=== PATIENT | female | born 1945 | race Caucasian/White ===

== ENCOUNTER 2017-01-17 15:31 | Emergency (ER) | payer OTHER, MEDICARE ==
--- NOTE | 2017-01-17 15:34 | ED GENERAL ADULT ---
History of Present Illness General Chief Complaint: Nausea, Vomiting, Diarrhea Stated Complaint: BIBA FOR NVD Source: patient, family, old records, EMS Exam Limitations: no limitations Allergies Coded Allergies: acetaminophen (From PERCOCET) (STOMACH UPSET 01/17/17) oxycodone (From PERCOCET) (STOMACH UPSET 01/17/17) Reconcile Medications Acetaminophen With Codeine (Acetaminophen-Cod #3 Tablet) 300 MG-30 MG TABLET 1 TAB PO Q6P PRN PAIN (Reported) Amoxicillin 500 MG CAPSULE 2 CAP PO BID ANTIBIOTIC (Reported) Hydrochlorothiazide 25 MG TABLET 1 TAB PO DAILY HTN (Reported) Ondansetron (Zofran Odt) 4 MG TAB.RAPDIS 1 TAB SL TID PRN nausea Ranitidine (Ranitidine HCl) 150 MG TABLET 1 TAB PO BID GERD (Reported) Triage Nurses Notes Reviewed? yes HPI: Patient is a 71-year-old female presents complaining of chills and vomiting. Chills onset on Saturday. Saturday patient had 2-3 episodes of diarrhea, took Pepto -Bismol and Imodium, has not had a bowel movement since then. Patient has had vomiting 1 day, 5-6 episodes with increase in her chills and associated generalized weakness. Nausea is currently moderate to severe. Patient has an "upset stomach" sensation. Patient has been having dental pain for the past 2-3 days, has been taking amoxicillin and Tylenol with Codeine. Patient reports that she is taking both of these medications previously with no adverse reaction. Patient denies fevers, chest pain, dyspnea, urinary symptoms. (OLIVA PAINTER,RADHA) Vital Signs & Intake/Output Vital Signs & Intake/Output Vital Signs Date Time Temp Pulse Resp B/P Pulse O2 O2 Flow FiO2 Ox Delivery Rate 01/17 2018 97.2 66 22 121/70 98 01/17 1903 98.2 68 20 118/59 97 Room Air 01/17 1654 97.5 60 15 163/79 98 Room Air Room Air 01/17 1610 Room Air Room Air 01/17 1535 96.3 65 20 153/68 100 Room Air ED Intake and Output 01/18 0000 01/17 1200 Intake Total 1000 Output Total Balance 1000 Intake, IV 1000 Past History Travel History Traveled to [place] past 21 day No Medical History Any Pertinent Medical History? see below for history Cardiovascular: hypertension, heart murmur Gastrointestinal: GERD Pneumonia Vaccine: 08/07/11 Influenza Vaccine: 07/16/14 Surgical History Surgical History: cholecystectomy, hysterectomy Psychosocial History Who do you live with Spouse Services at Home None What is your primary language Welsh Family History Hx Contributory? No (RADHA GREY) Review of Systems Review of Systems Constitutional: Reports: chills, malaise, weakness. Denies: fever. EENTM: Reports: tooth pain. Respiratory: Denies: cough, short of breath. Cardiovascular: Denies: chest pain. GI: Reports: see HPI. Genitourinary: Reports: no symptoms. Musculoskeletal: Reports: no symptoms. Skin: Reports: no symptoms. Neurological/Psychological: Reports: no symptoms. Hematologic/Endocrine: Denies: bruising, bleeding. Immunologic/Allergic: Denies: splenectomy. (RADHA GREY) Physical Exam Physical Exam General Appearance: alert, awake Head: atraumatic, normal appearance Eyes: Bilateral: normal appearance, PERRL, EOMI. Ears, Nose, Throat: normal pharynx, dry mucous membranes Neck: normal inspection, supple, full range of motion Respiratory: normal breath sounds, chest non-tender, no respiratory distress, lungs clear Cardiovascular: regular rate/rhythm Gastrointestinal: normal bowel sounds, soft, non-tender, negative McBurney's point tenderness, negative Olmedo sign Back: normal inspection, normal range of motion Extremities: normal inspection, normal capillary refill, normal range of motion, no edema Neurologic/Psych: awake, alert, oriented x 3, normal mood/affect Skin: intact, normal color, warm/dry Lymphatic: no anterior cervical dwayne Core Measures ACS in differential dx? No CVA/TIA Diagnosis: No Severe Sepsis Present: No Septic Shock Present: No (RADHA GREY) Progress Differential Diagnoses I considered the following diagnoses in my evaluation of the patient: viral syndrome, hepatitis, uti, electrolyte abnormality, dehydration, intra-abdominal infection Diagnostic Imaging: Viewed by Me: CT Scan. Discussed w/RAD: CT Scan. Radiology Impression: PATIENT: MICHAEL MELENDREZ PRESENT AGE: 71 PATIENT ACCOUNT NO: [id number] : 45 LOCATION: [facility] ORDERING PHYSICIAN: RADHA PAINTER SERVICE DATE: 01/17/17 EXAM TYPE: CAT - CT ABD & PELVIS W IV CONTRAST EXAMINATION: CT ABDOMEN AND PELVIS WITH CONTRAST CLINICAL INFORMATION: Vomiting and chills with elevated LFTs. COMPARISON: None available. TECHNIQUE: Multidetector volumetric imaging was performed of the abdomen and pelvis before and after the IV administration of 95 mL of Optiray 320 intravenous contrast. Sagittal and coronal reformatted images were obtained on the technologist's workstation. FINDINGS: The lung bases are clear. The liver, spleen, adrenal glands, and pancreas are normal. The gallbladder is surgically absent. Mild intra and extrahepatic duct dilatation, not unexpected following cholecystectomy. The kidneys exhibit symmetric nephrograms without evidence of hydronephrosis or nephrolithiasis. No focal renal lesions. The large and small bowel are normal in caliber without evidence of mechanical obstruction. No focal inflammatory changes adjacent to the large or the small bowel. The appendix is normal. There is no free air and there is no intra-abdominal free fluid. No mesenteric or retroperitoneal adenopathy. Uterus is surgically absent. No pelvic adenopathy. No free fluid within the pelvis. There are no acute osseous abnormalities. Multilevel degenerative disc disease throughout the lumbar spine. No significant soft tissue abnormality. IMPRESSION: - No acute findings. - Cholecystectomy and hysterectomy. DICTATED BY: TAYE HELMS MD DATE/TIME DICTATED:01/17/171809 SUPERVISOR ELECTRONICS ASSEMBLY:KERRY DATE/TIME TRANSCRIBED:01/17/171809 CONFIDENTIAL, DO NOT COPY WITHOUT APPROPRIATE AUTHORIZATION. <Electronically signed in Other Vendor System> SIGNED BY: TAYE HELMS MD 01/17/17 1821 Initial ED EKG: sinus bradycardia 54 bpm normal axis, normal intervals, no acute ST/T-wave abnormalities, no acute changes from previous EKG Prior EKG: unchanged (RADHA GREY) Plan of Care: Orders Procedure Date/time Status LACTIC ACID 01/17 1843 Active Add-on Test (ER Only) 01/17 1641 Active HEPATITIS PANEL 01/17 1600 Complete URINALYSIS 01/17 1543 Complete LIPASE 01/17 1543 Complete LACTIC ACID 01/17 1543 Complete COMPREHENSIVE METABOLIC PANEL 01/17 1543 Complete CBC WITHOUT DIFFERENTIAL 01/17 1543 Complete EKG 01/17 1543 Active Laboratory Tests 01/17/17 1950: Urine Color YEL, Urine Clarity CLDY H, Urine pH 7.0, Ur Specific [place] 1.010, Urine Protein NEG, Urine Ketones 40 H, Urine Nitrite NEG, Urine Bilirubin NEG, Urine Urobilinogen 1.0, Ur Leukocyte Esterase NEG, Ur Microscopic EXAM NOT REQUIRED, Urine Hemoglobin NEG, Urine Glucose NEG 01/17/17 1600: Anion Gap 11, Estimated GFR > 60, BUN/Creatinine Ratio 21.4, Glucose 111 H, Lactic Acid 1.1, Calcium 9.6, Total Bilirubin 0.7, AST 441 H, ALT 467 H, Alkaline Phosphatase 202 H, Total Protein 7.1, Albumin 4.1, Globulin 3.0, Albumin/Globulin Ratio 1.4, Lipase 115, CBC w Diff NO MAN DIFF REQ, RBC 4.88, MCV 87.0, MCH 30.4, RDW 12.8, MPV 7.7, Gran % 70.5, Lymphocytes % 15.7 L, Monocytes % 13.3 H, Eosinophils % 0.1, Basophils % 0.4, Absolute Granulocytes 3.3, Absolute Lymphocytes 0.7 L, Absolute Monocytes 0.6, Absolute Eosinophils 0 , Absolute Basophils 0, PUBS MCHC 34.9, Hepatitis A IgM Ab NONREACTIVE, Hep Bs Antigen NONREACTIVE, Hep B Core IgM Ab Conf NONREACTIVE, Hepatitis C Antibody NONREACTIVE 01/17/2017 4:47:29 PM: Patient continues with severe nausea and chills. Results of labs discussed with patient. No significant abdominal pain or tenderness currently. Hepatitis panel and CT scan ordered 01/17/2017 7:47:33 PM: Patient feeling significantly improved. Tolerating oral intake. Patient ambulatory to the bathroom. Patient requesting discharge. (OLIVA PAINTER,RADHA) Departure Departure Time of Disposition: 2003 Disposition: HOME OR SELF CARE Condition: Stable Clinical Impression Primary Impression: Nausea and vomiting Qualifiers: Vomiting type: unspecified Vomiting Intractability: non-intractable Qualified Code: R11.2 - Nausea with vomiting, unspecified Secondary Impressions: Elevated liver function tests Referrals: ZUHAIR TRACY,LINA Randhawa (PCP/Family) Additional Instructions: Clear liquid diet for the next 12-24 hours then slowly advance her diet as tolerated. Follow-up with your primary doctor within 1 week for further evaluation. Return to the emergency department if fevers, unable to stay hydrated, any yellowing of your eyes or skin, or worsening of symptoms. Departure Forms: Customer Survey General Discharge Information Prescriptions: Current Visit Scripts Ondansetron (Zofran Odt) 1 TAB SL TID PRN nausea #10 TAB (RADHA GREY) PA/DISK GRINDER Co-Sign Statement Statement: ED Attending supervision documentation- [X] I saw and evaluated the patient. I have also reviewed all the pertinent lab results and diagnostic results. I agree with the findings and the plan of care as documented in the PA's/DISK GRINDER's documentation. [] I have reviewed the ED Record and agree with the PA's/DISK GRINDER's documentation. [] Additions or exceptions (if any) to the PAs/DISK GRINDER's note and plan are summarized below: [] (TAYE MCMILLAN DO) Critical Care Note Critical Care Note Critical Care Time: non-applicable (RADHA GREY)
[2017-01-17 16:12] LABS: ABSOLUTE BASOPHIL COUNT 0 /CUMM (0.0-0.2); ABSOLUTE EOSINOPHIL COUNT 0 /CUMM (0.0-0.7); ABSOLUTE GRANULOCYTE CT 3.3 /CUMM (1.4-6.5); ABSOLUTE LYMPH COUNT 0.7 /CUMM (1.2-3.4); ABSOLUTE MONOCYTE COUNT 0.6 /CUMM (0.10-0.60); BASOPHIL % 0.4 % (0.0-2.0); EOSINOPHIL % 0.1 % (0-5); GRANULOCYTE % 70.5 % (42.2-75.2); HEMATOCRIT 42.5 % (37-47); MEAN CORPUSCULAR HGB 30.4 PG (27.0-31.0); MEAN CORPUSCULAR HGB CONC 34.9 G/DL (33.0-37.0); MEAN PLATELET VOLUME 7.7 FL (7.4-10.4); PLATELET COUNT 243 /CUMM (130-400); RBC DISTRIBUTION WIDTH 12.8 % (11.5-14.5); RED BLOOD CELL CT 4.88 /CUMM (4.20-5.40); WHITE BLOOD CELL COUNT 4.7 /CUMM (4.8-10.8)
--- NOTE | 2017-01-17 18:21 | CT SCAN REPORT ---
EXAMINATION: CT ABDOMEN AND PELVIS WITH CONTRAST CLINICAL INFORMATION: Vomiting and chills with elevated LFTs. COMPARISON: None available. TECHNIQUE: Multidetector volumetric imaging was performed of the abdomen and pelvis before and after the IV administration of 95 mL of Optiray 320 intravenous contrast. Sagittal and coronal reformatted images were obtained on the technologist's workstation. FINDINGS: The lung bases are clear. The liver, spleen, adrenal glands, and pancreas are normal. The gallbladder is surgically absent. Mild intra and extrahepatic duct dilatation, not unexpected following cholecystectomy. The kidneys exhibit symmetric nephrograms without evidence of hydronephrosis or nephrolithiasis. No focal renal lesions. The large and small bowel are normal in caliber without evidence of mechanical obstruction. No focal inflammatory changes adjacent to the large or the small bowel. The appendix is normal. There is no free air and there is no intra-abdominal free fluid. No mesenteric or retroperitoneal adenopathy. Uterus is surgically absent. No pelvic adenopathy. No free fluid within the pelvis. There are no acute osseous abnormalities. Multilevel degenerative disc disease throughout the lumbar spine. No significant soft tissue abnormality. IMPRESSION: - No acute findings. - Cholecystectomy and hysterectomy.
[2017-01-17] MEDS ORDERED: RANITIDINE HCL150 MG PO (19:58)
[2017-01-17] MEDS ORDERED: AMOXICILLIN500 M2 PO (19:58)
[2017-01-17] MEDS ORDERED: ACETAMINOPHEN-1 EAC3 PO (19:58)
[2017-01-17] MEDS ORDERED: HYDROCHLOROTHIA25 M1 PO (19:58)
[2017-01-17] MEDS ORDERED: ZOFRAN ODT4 M1 SL (20:06)
[2017-01-17 20:18] VITALS: BP 121/70
== END 2017-01-17 20:19 ==
LOC: ERH 15:31
PROVIDERS: Physician Assistant
DX: R11.2 Nausea with vomiting, unspecified (principal); R94.5 Abnormal results of liver function studies
CPT/HCPCS: 74177; 81003; 93005; 93010; 96374; 96375; J2405; J2765

== ENCOUNTER 2018-02-21 13:24 | Emergency (ER) | payer OTHER, MEDICARE ==
[~2018-02-21] VITALS: Ht 165.1 cm; Wt 81.2 kg
[~2018-02-21 13:24] MED LIST: ACETAMINOPHEN-1 EAC3 PO; AMOXICILLIN500 M2 PO; HYDROCHLOROTHIA25 M1 PO; RANITIDINE HCL150 MG PO; ZOFRAN ODT4 M1 SL
--- NOTE | 2018-02-21 13:31 | ED GENERAL ADULT ---
See Addendum History of Present Illness General Chief Complaint: Abdominal Pain/Flank Pain Stated Complaint: ABD PAIN NAUSEA Source: patient Exam Limitations: no limitations Vital Signs & Intake/Output Vital Signs & Intake/Output Vital Signs Date Time Temp Pulse Resp B/P B/P Pulse O2 O2 Flow FiO2 Mean Ox Delivery Rate 02/21 1853 60 142/64 02/21 1730 97.5 64 18 141/62 97 Room Air Room Air 02/21 1529 97.8 58 18 144/66 97 Room Air Room Air 02/21 1331 97.3 63 18 148/60 96 Room Air Room Air 02/21/18 2:35 PM 72-year-old female presents to the emergency department for retrosternal chest discomfort. The patient states that she's had ongoing pain between her breasts and in the epigastrium that started early today. This progressed and got worse. She denies any history of coronary artery disease but she's been diagnosed with GERD. She takes Zantac twice a day .The onset of symptoms was abrupt, the duration was just today, the severity is significant; as his symptoms required her to come to the emergency department for care. EKG revealed normal sinus bradycardia. No ischemic changes. Allergies Coded Allergies: oxycodone (From PERCOCET) (STOMACH UPSET 01/17/17) Reconcile Medications Hydrochlorothiazide 25 MG TABLET 1 TAB PO DAILY HTN (Reported) Ranitidine (Ranitidine HCl) 150 MG TABLET 1 TAB PO BID GERD (Reported) Triage Nurses Notes Reviewed? yes HPI: 02/21/18 72-year-old female presented to the emergency department with sudden onset of progressive retrosternal chest pain that EPIGASTRIC Past History Medical History Any Pertinent Medical History? see below for history Neurological: NONE EENT: NONE Cardiovascular: hypertension, heart murmur Respiratory: NONE Gastrointestinal: GERD Hepatic: NONE Renal: NONE Musculoskeletal: NONE Psychiatric: NONE Endocrine: NONE Blood Disorders: NONE Cancer(s): NONE AMUSEMENT RIDE OPERATOR/Reproductive: NONE Surgical History Surgical History: cholecystectomy, hysterectomy Psychosocial History Who do you live with Spouse Services at Home None What is your primary language Guamanian Family History Hx Contributory? No Review of Systems Review of Systems Constitutional: Denies: fever. EENTM: Denies: visual changes. Respiratory: Denies: short of breath. Cardiovascular: Reports: see HPI. GI: Reports: see HPI. Genitourinary: Reports: no symptoms. Musculoskeletal: Reports: no symptoms. Skin: Denies: rash. Neurological/Psychological: Reports: anxiety. Hematologic/Endocrine: Denies: bruising, bleeding. Physical Exam Physical Exam General Appearance: alert, awake, anxious, mild distress Head: atraumatic, normal appearance Eyes: Bilateral: normal appearance, PERRL, EOMI. Ears, Nose, Throat: normal pharynx, normal ENT inspection, hearing grossly normal Neck: normal inspection, supple, full range of motion Respiratory: normal breath sounds, chest non-tender, no respiratory distress Cardiovascular: edema, gallop Peripheral Pulses: 4+ radial (L), 4+ ulnar (L) Gastrointestinal: soft, non-tender Back: normal range of motion Extremities: no edema Neurologic/Psych: no motor/sensory deficits, awake, alert, oriented x 3 Skin: intact, normal color, warm/dry Core Measures ACS in differential dx? No CVA/TIA Diagnosis: No Sepsis Present: No Sepsis Focused Exam Completed? No Progress Differential Diagnoses I considered the following diagnoses in my evaluation of the patient: [Acute coronary syndrome, pancreatitis, gastritis, peptic ulcer disease, aortic dissection, esophagitis] Plan of Care: Orders Procedure Date/time Status TROPONIN LEVEL 02/21 1635 Complete EKG 02/21 1630 Active Add-on Test (ER Only) 02/21 1519 Active Add-on Test (ER Only) 02/21 1437 Active LIPASE 02/21 1350 Complete D-DIMER 02/21 1350 Complete TROPONIN LEVEL 02/21 1331 Complete MAGNESIUM 02/21 1331 Complete COMPREHENSIVE METABOLIC PANEL 02/21 1331 Complete CHOLESTEROL 02/21 1331 Complete CBC WITHOUT DIFFERENTIAL 02/21 1331 Complete EKG 02/21 1331 Active Laboratory Tests 02/21/18 1635: Troponin I < 0.01 02/21/18 1350: Anion Gap 7, Estimated GFR > 60, BUN/Creatinine Ratio 21.4, Glucose 105 H, Calcium 9.0, Magnesium 1.9, Total Bilirubin 0.6, AST 95 H, ALT 52, Alkaline Phosphatase 99, Troponin I < 0.01, Total Protein 6.7, Albumin 3.9, Globulin 2.8, Albumin/Globulin Ratio 1.4, Cholesterol 190, Lipase 150, D-Dimer High Sensitivty < 200, CBC w Diff NO MAN DIFF REQ, RBC 4.62, MCV 88.5, MCH 30.0, MCHC 33.9, RDW 13.3, MPV 7.6, Gran % 74.8, Lymphocytes % 14.0 L, Monocytes % 9.2, Eosinophils % 1.5, Basophils % 0.5, Absolute Granulocytes 4.8, Absolute Lymphocytes 0.9 L, Absolute Monocytes 0.6, Absolute Eosinophils 0.1, Absolute Basophils 0 Initial ED EKG: NSR Prior EKG: unchanged Repeat EKG: unchanged Departure Departure Disposition: HOME OR SELF CARE Condition: Stable Clinical Impression Primary Impression: Esophagitis Secondary Impressions: Chest pain Referrals: Daria TRACY,Allyson Randhawa (PCP/Family) Departure Forms: Customer Survey General Discharge Information Comments Chest x-ray results shown below IMPRESSION: Stable examination demonstrating no acute cardiopulmonary pathology. DICTATED BY: Edward Nieves MD DATE/TIME DICTATED:02/21/181421 HEALTH UNIT CLERK:KERRY DATE/TIME TRANSCRIBED:02/21/181421 CONFIDENTIAL, DO NOT COPY WITHOUT APPROPRIATE AUTHORIZATION. <Electronically signed in Other Vendor System> SIGNED BY: Edward Nieves MD 02/21/181425 Patient's chest pain resolved with GI cocktail. Chest x-ray is negative. Repeat EKG is unchanged troponins are negative. She has a history of esophageal reflux. The pain was consistent with that. Critical Care Note Critical Care Note Critical Care Time: 30-74 min
[2018-02-21 13:53] LABS: ABSOLUTE BASOPHIL COUNT 0 /CUMM (0.0-0.2); ABSOLUTE EOSINOPHIL COUNT 0.1 /CUMM (0.0-0.7); ABSOLUTE GRANULOCYTE CT 4.8 /CUMM (1.4-6.5); ABSOLUTE LYMPH COUNT 0.9 /CUMM (1.2-3.4); ABSOLUTE MONOCYTE COUNT 0.6 /CUMM (0.10-0.60); BASOPHIL % 0.5 % (0.0-2.0); EOSINOPHIL % 1.5 % (0-5); GRANULOCYTE % 74.8 % (42.2-75.2); HEMATOCRIT 40.8 % (37-47); MEAN CORPUSCULAR HGB CONC 33.9 G/DL (33.0-37.0); MEAN CORPUSCULAR VOLUME 88.5 FL (81.0-99.0); MEAN PLATELET VOLUME 7.6 FL (7.4-10.4); PLATELET COUNT 252 /CUMM (130-400); RBC DISTRIBUTION WIDTH 13.3 % (11.5-14.5); RED BLOOD CELL CT 4.62 /CUMM (4.20-5.40); WHITE BLOOD CELL COUNT 6.4 /CUMM (4.8-10.8)
--- NOTE | 2018-02-21 14:26 | RADIOLOGY REPORT ---
EXAMINATION: XR PORTABLE CHEST CLINICAL INFORMATION: Epigastric pain COMPARISON: Chest x-ray the 1999 TECHNIQUE: Portable frontal view of the chest was obtained. FINDINGS: Cardiac silhouette is normal in size. Lungs are adequately aerated. No lobar consolidation. No pleural effusion or pneumothorax. IMPRESSION: Stable examination demonstrating no acute cardiopulmonary pathology.
[2018-02-21 18:53] VITALS: BP 142/64
== END 2018-02-21 18:54 ==
LOC: ERH 13:24
PROVIDERS: Emergency Medicine
DX: K20.9 Esophagitis, unspecified (principal); R07.89 Other chest pain
CPT/HCPCS: 71045; 93005; 93010